=== PATIENT | male | born 1965 | race American Indian/Alaskan Native ===

== ENCOUNTER 2019-02-02 11:04 | Emergency (ER) | payer MEDICAID ==
[2019-02-02 11:06] VITALS: BMI 27.7
--- NOTE | 2019-02-02 12:40 | ED PDOC ---
HPI: Headache Time Seen by Provider: 02/02/19 11:25 Chief Complaint (Nursing): GI Problem Chief Complaint (Provider): GI Problem History Per: Patient History/Exam Limitations: no limitations Onset/Duration Of Symptoms: Days (x3) Current Symptoms Are (Timing): Still Present Additional Complaint(s): 53 year old male with medical history of depression, presents to the emergency department with complaints of nausea associated with headache and back stiffness since yesterday. Patient admits to feeling stressed out for the past 3 days. He is compliant with his prescribed Zoloft which has been decreased from 200mg to 100mg recently. Otherwise, he denies chest pain, dizziness, abdominal pain, fever, chills, vomiting, suicidal or homicidal ideation. PCP: Dr. Paco Mirza Past Medical History Reviewed: Historical Data, Nursing Documentation, Vital Signs Vital Signs: Last Vital Signs Temp 98.2 F 02/02/19 11:52 Pulse 71 02/02/19 11:52 Resp 18 02/02/19 11:52 BP 120/80 02/02/19 11:52 Pulse Ox 96 02/02/19 11:52 - Medical History PMH: Anxiety, Depression, HTN, Migraine Denies: Chronic Kidney Disease - Family History Family History: States: Unknown Family Hx - Immunization History Hx Tetanus Toxoid Vaccination: No Hx Influenza Vaccination: Yes Hx Pneumococcal Vaccination: No - Home Medications Home Medications: Ambulatory Orders Medication Instructions Recorded Sertraline HCl [Zoloft] 1 tab PO DAILY 03/02/18 amLODIPine [Norvasc] 2 tab PO DAILY 03/02/18 Naproxen [Naprosyn] 500 mg PO BID #20 tab 05/12/18 Omeprazole 20 mg PO DAILY 05/12/18 Propranolol [Inderal] 20 mg PO DAILY 05/12/18 diaZEpam [Valium] 5 mg PO TID #21 tab 05/12/18 - Allergies Allergies/Adverse Reactions: Allergies Allergy/AdvReac Type Severity Reaction Status Date / Time No Known Allergies Allergy Verified 05/12/18 18:11 Review of Systems ROS Statement: Except As Marked, All Systems Reviewed And Found Negative Constitutional: Negative for: Fever, Chills Cardiovascular: Negative for: Chest Pain Gastrointestinal: Positive for: Nausea. Negative for: Vomiting, Abdominal Pain Musculoskeletal: Positive for: Back Pain (stiffness) Neurological: Positive for: Headache. Negative for: Dizziness Psych: Negative for: Suicidal ideation (or homicidal ideation) Physical Exam - Reviewed Nursing Documentation Reviewed: Yes Vital Signs Reviewed: Yes - Physical Exam Appears: Positive for: Well, Non-toxic, No Acute Distress Head Exam: Positive for: ATRAUMATIC, NORMAL INSPECTION, NORMOCEPHALIC Skin: Positive for: Normal Color Eye Exam: Positive for: Normal appearance, EOMI, PERRL ENT: Positive for: Normal ENT Inspection. Negative for: Pharyngeal Erythema Neck: Positive for: Normal, Supple Cardiovascular/Chest: Positive for: Regular Rate, Rhythm. Negative for: Murmur Respiratory: Positive for: Normal Breath Sounds. Negative for: Respiratory Distress Gastrointestinal/Abdominal: Positive for: Normal Exam, Soft. Negative for: Tenderness Back: Positive for: Normal Inspection. Negative for: L CVA Tenderness, R CVA Te nderness Extremity: Positive for: Normal ROM (upper/lower). Negative for: Pedal Edema, Calf Tenderness Neurological/Psych: Positive for: Awake, Alert, Oriented (x3) - Laboratory Results Result Diagrams: 02/02/19 12:51 02/02/19 12:51 - ECG O2 Sat by Pulse Oximetry: 96 (RA) Pulse Ox Interpretation: Normal - Progress Re-evaluation Time: 14:03 Condition: Re-examined, Improved Medical Decision Making Medical Decision Making: Initial Impression: nausea; headache Differential diagnosis: tension headache; migraine; side effects from [facility] Initial Plan: * EKG * Labs * Tylenol 650mg PO * Zofran 4mg IVP Time: 1245 --EKG: NSR at 67 BMP. Normal QRS with no ST changes. (+) LVH. Scribe Attestation: Documented by Evita Shay, acting as a scribe for Bryson Walker MD. Provider Scribe Attestation: All medical record entries made by the Scribe were at my direction and personally dictated by me. I have reviewed the chart and agree that the record accurately reflects my personal performance of the history, physical exam, medical decision making, and the department course for this patient. I have also personally directed, reviewed, and agree with the discharge instructions and disposition. Disposition - Clinical Impression Clinical Impression: Headache, Nausea - Patient ED Disposition Is Patient to be Admitted: No Counseled Patient/Family Regarding: Studies Performed, Diagnosis, Need For F ollowup - Disposition Referrals: [facility] [Outside] Disposition: Routine/Home Disposition Time: 14:03 Condition: GOOD Additional Instructions: NAZANIN MCMANUS, thank you for letting us take care of you today. Your provider was Bryson Walker MD and you were treated for NAUSEOUS. The emergency medical care you received today was directed at your acute symptoms. If you were prescribed any medication, please fill it and take as directed. It may take several days for your symptoms to resolve. Return to the Emergency Department if your symptoms worsen, do not improve, or if you have any other problems. Please contact your doctor or call one of the physicians/clinics you have been referred to that are listed on the Patient Visit Information form that is included in your discharge packet. Bring any paperwork you were given at discharge with you along with any medications you are taking to your follow up visit. Our treatment cannot replace ongoing medical care by a primary care provider outside of the emergency department. Thank you for allowing the [facility] team to be part of your care today. If you had an X-Ray or CT scan: A Radiologist will review the ED reading if any change in treatment is needed we will contact you. If you had a blood, urine, or wound culture: It will take several days for the r esults, if any change in treatment is needed we will contact you. If you had an STI test: It will take 48 hours for the results. Please call after 1 week if you have not heard back. Instructions: Tension Headache, Nausea and Vomiting, Adult (DC)
[2019-02-02 13:01] LABS: BASO % 0.4 % (0.0-2.0); EOS # 0.1 K/uL (0.0-0.7); EOS % 1.9 % (0.0-4.0); HEMOGLOBIN 13.3 g/dL (12.0-18.0); LYMPH # 1.4 K/uL (1.0-4.3); LYMPH % 40.7 % (20.0-40.0); MEAN CELL VOLUME 93.4 fl (80.0-94.0); MEAN CORPUSCULAR HEMOGLOBIN 31.3 pg (27.0-31.0); MEAN CORPUSCULAR HGB CONC 33.5 g/dL (33.0-37.0); MEAN PLATELET VOLUME 7.9 fl (7.2-11.7); MONO # 0.3 K/uL (0.0-0.8); MONO % 9.4 % (0.0-10.0); NEUT # 1.6 K/uL (1.8-7.0); NEUT % 47.6 % (50.0-75.0); NRBC % 0.1 % (0.0-0.0); RBC 4.25 Mil/uL (4.40-5.90); RED CELL DISTRIBUTION WIDTH 12.8 % (11.5-14.5); WHITE BLOOD COUNT 3.4 K/uL (4.8-10.8)
[2019-02-02 13:45] LABS: ALB/GLOB RATIO 1.5 (1.0-2.1); ALBUMIN 4.5 g/dL (3.5-5.0); ALT/SGPT 34 U/L (21-72); AST/SGOT 25 U/L (17-59); BLOOD UREA NITROGEN 20 mg/dl (9-20); GFR NON-AFRICAN AMERICAN > 60
[2019-02-02 15:29] VITALS: BP 119/76; PULSE 64; RESP 17; TEMP 97.6; O2SAT 97
--- NOTE | 2019-02-02 18:20 | CARD ---
APPROVED REPORT Date of service: 02/02/2019 EKG Measurement Heart [id number] <Conclusion> Normal sinus rhythm Possible Left atrial enlargement Left ventricular hypertrophy Abnormal ECG
== END 2019-02-02 14:46 | disposition home or self-care (01) ==
LOC: H.ER 11:04
DX: R51 Headache (principal); R11.0 Nausea
CPT/HCPCS: 80053; 84484; 85025; 93005; 96374; 99284; J2405